=== PATIENT | female | born 1970 | race Caucasian/White ===

== ENCOUNTER 2017-01-09 22:24 | Observation (INO) | payer OTHER ==
[~2017-01-09] VITALS: Ht 160 cm; Wt 106.5 kg
--- NOTE | 2017-01-09 23:33 | DIAGNOSTIC IMAGING REPORT ---
PROCEDURE: XR CHEST 2 VIEW INDICATION: CHEST PAIN , initial encounter TECHNIQUE: PA and lateral view. COMPARISON: None. FINDINGS: Lungs are clear. Cardiovascular structures are normal. Bony thorax is unremarkable. IMPRESSION: 1. Negative chest.
--- NOTE | 2017-01-09 23:56 | ED ORDER SUMMARY ---
..... Patient: ENZO GORE OrderSheet [facility] VisitID: [id number] [address] [place] [address] 46y, F Registration Date/Time: 01/09/2017 ORDER SHEET Weight: 108.8 kg Allergies: Sulfa Antibiotics GENERAL ORDERS: Chest 2V Urgent (22:40 01/09/2017 PHutchinson DO) (Ack 22:45 Donaldo) (22:54 Meliza) [employer] Worker (Continuous) (22:40 01/09/2017 PHutchinson DO) (22:44 EBonham) (Ack 22:44 Jacna) Cardiac Panel Stat (22:41 01/09/2017 PHutchinson DO) (22:44 EBonham) (Ack 22:44 Carolinaekimana) BNP Urgent (22:41 01/09/2017 PHutchinson DO) (22:44 EBonham) (Ack 22:44 Carolinaekimana) D-Dimer Urgent (22:41 01/09/2017 PHutchinson DO) (22:44 EBonham) (Ack 22:44 Carolinaekimana) Amylase Urgent (22:41 01/09/2017 PHutchinson DO) (22:44 EBonham) (Ack 22:45 Carolinaekimana) PT with INR Urgent (22:41 01/09/2017 PHutchinson DO) (22:44 EBonham) (Ack 22:45 Carolinaekimana) UA-Culture if indicated Urgent (22:41 01/09/2017 PHutchinson DO) (Ack 22:45 Carolinaekimana) TSH Urgent (22:41 01/09/2017 PHutchinson DO) (22:44 EBonham) (Ack 22:45 Carolinaekimana) Pulse oximeter (22:41 01/09/2017 PHutchinson DO) (22:44 EBonham) EKG - ER Stat (22:41 01/09/2017 PHutchinson DO) (22:44 EBonham) (Ack 22:44 Carolinaekimana) Vitals (22:41 01/09/2017 PHutchinson DO) (22:44 [facility]) MEDICATION ORDERS: Aspirin PO 325 mg (NOW) (22:40 01/09/2017 [facility]) (Ack 22:44 [facility]) (23:13 [facility]) NitroGLYCERIN SL 0.4 mg (x3 PRN Chest Pain) (22:41 01/09/2017 [facility]) (Ack 22:44 [facility]) (23:14 [facility]) IV FLUIDS: IV NS : initial bolus 500 mL (1000 mL/hr), then 250 mL/hr for X2 (NOW) (22:40 01/09/2017 [facility]) (Ack 22:44 [facility]) (23:14 [facility]) Zofran IV 4 mg (NOW) (23:22 01/09/2017 [facility]) (Ack 23:25 HKone R.N.) (23:38 HKone R.N.) Ativan IV 1 mg (HIGH ALERT MEDICATION, NOW) (23:22 01/09/2017 [facility]) (Ack 23:25 HKone R.N.) (23:38 HKone R.N.) Dilaudid IV 0.5 mg (HIGH ALERT MEDICATION, NOW) (23:22 01/09/2017 [facility]) (Ack 23:25 HKone R.N.) (23:39 HKone R.N.) ORDER SHEET NOTES: [Electronically signed by Arun Membreno DO (01:17 01/10/2017)] [Electronically signed by Mandy Duron R.N. (:32 01/10/2017)] [Electronically locked/signed by Mandy Duron R.N. (:32 01/10/2017)]
--- NOTE | 2017-01-09 23:56 | ED ORDER SUMMARY ---
..... 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) (22:40 01/09/2017 PHutchinson DO) (22:44 EBonham) (Ack 22:44 Jacna) Cardiac Panel Stat (22:41 01/09/2017 PHutchinson DO) (22:44 EBonham) (Ack 22:44 Carolinaekimana) BNP Urgent (22:41 01/09/2017 PHutchinson DO) (22:44 EBonham) (Ack 22:44 Carolinaekimana) D-Dimer Urgent (22:41 01/09/2017 PHutchinson DO) (22:44 EBonham) (Ack 22:44 Carolinaekimana) Amylase Urgent (22:41 01/09/2017 PHutchinson DO) (22:44 EBonham) (Ack 22:45 Carolinaekimana) PT with INR Urgent (22:41 01/09/2017 PHutchinson DO) (22:44 EBonham) (Ack 22:45 Carolinaekimana) UA-Culture if indicated Urgent (22:41 01/09/2017 PHutchinson DO) (Ack 22:45 Carolinaekimana) TSH Urgent (22:41 01/09/2017 PHutchinson DO) (22:44 EBonham) (Ack 22:45 Carolinaekimana) Pulse oximeter (22:41 01/09/2017 PHutchinson DO) (22:44 EBonham) EKG - ER Stat (22:41 01/09/2017 PHutchinson DO) (22:44 EBonham) (Ack 22:44 Carolinaekimana) Vitals (22:41 01/09/2017 PHutchinson DO) (22:44 [facility]) MEDICATION ORDERS: Aspirin PO 325 mg (NOW) (22:40 01/09/2017 [facility]) (Ack 22:44 [facility]) (23:13 [facility]) NitroGLYCERIN SL 0.4 mg (x3 PRN Chest Pain) (22:41 01/09/2017 [facility]) (Ack 22:44 [facility]) (23:14 [facility]) IV FLUIDS: IV NS : initial bolus 500 mL (1000 mL/hr), then 250 mL/hr for X2 (NOW) (22:40 01/09/2017 [facility]) (Ack 22:44 [facility]) (23:14 [facility]) Zofran IV 4 mg (NOW) (23:22 01/09/2017 [facility]) (Ack 23:25 HKone R.N.) (23:38 HKone R.N.) Ativan IV 1 mg (HIGH ALERT MEDICATION, NOW) (23:22 01/09/2017 [facility]) (Ack 23:25 HKone R.N.) (23:38 HKone R.N.) Dilaudid IV 0.5 mg (HIGH ALERT MEDICATION, NOW) (23:22 01/09/2017 [facility]) (Ack 23:25 HKone R.N.) (23:39 HKone R.N.) ORDER SHEET NOTES: [Electronically signed by Arun Membreno DO (01:17 01/10/2017)] [Electronically signed by Mandy Duron R.N. (:32 01/10/2017)] [Electronically locked/signed by Mandy Duron R.N. (:32 01/10/2017)]
--- NOTE | 2017-01-09 23:56 | ED CLINICAL REPORT ---
Clinical Report - Physicians/Mid Levels [facility] [address] [place] [address] 01/09/2017 22:25 Patient: ENZO GORE Time Seen: 22:30. Arrived- By ambulance. Historian- patient and EMS personnel. HISTORY OF PRESENT ILLNESS Chief Complaint: CHEST DISCOMFORT. It is described as pressure, sharp and "pain" and it is described as located in the central chest and left chest area and in the upper back and left scapular area and radiating to the right upper back. This started today and is still present. It was gradual in onset and has been waxing/waning. Onset during light activity. At its maximum, severity described as moderate. When seen in the E.D., severity described as moderate. Modifying factors- worsened by movement. Relieved by rest. The patient has had nausea (for several days). (Pt admits to having some associated anxiety). Similar symptoms previously: None. Recent medical care: Not recently seen/assessed. REVIEW OF SYSTEMS No fever, chills, cough, pedal edema or calf pain. No fainting episodes, headache, sore throat, blurred vision or abdominal pain. No black stools, difficulty with urination, skin rash or bloody stools. The patient has had moderate, intermittent palpitations. The palpitations have lasted only seconds. The palpitations feel like skipped beats. PAST HISTORY Heart disease - states "heart damage" due to "high blood pressure when I was " and "an enlarged heart" - no known treadmill or echocardiogram per patient Anxiety and PTSD Obesity SURGERIES: Bilateral Tubal Ligation. Cholecystectomy. SOCIAL HISTORY Smoker- current status unknown. Is a local resident. ADDITIONAL NOTES The nursing notes have been reviewed. PHYSICAL EXAM Vital Signs: 01/09/2017 22:38 BP: 119/81. HR: 88. RR: 20. O2 saturation: 98%. Temp: 98.3 F. Appearance: Alert. Oriented X3. Patient in mild distress. Eyes: Eyes normal inspection. No scleral icterus or pale conjunctivae. ENT: Pharynx normal. No pharyngeal erythema or tonsillar exudate. The mucous membranes are not dry. Neck: Normal inspection. Neck supple. CVS: Normal heart rate and rhythm. Heart sounds normal. Pulses normal. Respiratory: No respiratory distress. Breath sounds normal. Abdomen: Soft and nontender. Back: Normal external inspection. Skin: Skin warm and dry. Normal skin color. No rash. Normal skin turgor. Extremities: Extremities exhibit normal ROM. No calf tenderness. No lower extremity edema. Neuro: Oriented X 3. No motor deficit. LABS, X-RAYS, AND EKG EKG: EKG time: (22:38). Normal sinus rhythm. Rate: 85. Occasional ectopic beats. Premature ventricular contractions. Normal P waves. Normal MARIA L. Q waves in lead III and aVF. Non-specific ST segment / T wave abnormalities. Non-specific T wave flattening in lead III. The study has been interpreted contemporaneously by me. The EKG appears to be a good tracing. Rhythm Strip #1: Normal sinus rhythm. Regular rhythm. Narrow QRS complexes. No ectopy. Chest X-ray: No acute disease. Normal lung markings present. Normal heart size. Mediastinum normal. Great vessels normal. Normal aortic shadow. No infiltrate. No fracture. No vascular congestion, CHF, pulmonary edema or widening of mediastinum. Views: PA and lateral. Technique: good. The X-rays were interpreted contemporaneously by me. Prior films were not available for comparison. Laboratory Tests: CBC w Diff: (XU: 01/09/2017 22:35) ( MsgRcvd 01/09/2017 23:00) Final results Test Result Flag Units (Reference) WHITE BLOOD COUNT 8.2 K/uL (4.5-11.5) RED BLOOD COUNT 5.17 M/uL (4.00-5.20) HEMOGLOBIN 14.8 gm/dL (12.0-16.0) HEMATOCRIT 44.7 % (36.0-46.0) MEAN CELL VOLUME 86 fL (80-100) MEAN CORPUSCULAR HGB 29 pg (26-34) MEAN CORPUSCULAR HGB CONC 33 g/dL (31-37) RED CELL DISTRIBUTION WIDTH 13.4 % (11.6-14.8) PLATELET COUNT 348 K/uL (150-400) LYMPH % 42.1 H % (25-40) MONO % 4.7 % (3-14) GRANULOCYTE % 53.2 (53-90) PT with INR: (XU: 01/09/2017 22:35) ( [facility] 01/09/2017 23:09) Final results Test Result Flag Units (Reference) INR 0.9 (0.8-1.2) Low Intensity Therapy: INR 1.5-2.0 PT range 18.5-23.1Mod.Intensity Therapy: INR 2.0-3.0 PT range 23.1-31.5High Intensity Therapy: INR 2.5-3.5 PT range 27.4-35.5High Intensity Therapy 2: INR 3.0-4.0 PT range 31.5-39.3 D-DIMER QUANTITATIVE < 0.27 L ug/mLFEU (0.27-0.52) The primary value of this quantitative assay relates toits negative predictive value (i.e. exclusion) of pulmonaryembolism/deep vein thrombosis/DIC.Elevated levels of d-dimer may also occur with:, age, cancer, inflammation, liver disease,post-op, infection, hematoma, coronary disease, peripheralarteriopathy, bleeding disorders and thrombolytic treatment.Results should be correlated with other clinical andradiological data.Testing Methodology: Latex Immunoassay BNP: (XU: 01/09/2017 22:41) ( [facility] 01/09/2017 23:17) Final results Test Result Flag Units (Reference) B-TYPE NATRIURETIC PEPTIDE 7.2 pg/ml (5-100) Amylase: (XU: 01/09/2017 22:35) ( [facility] [place]/09/[place] 23:22) Final results Test Result Flag Units (Reference) AMYLASE 49 U/L (25-115) THYROID STIMULATING HORMONE 2.461 uIU/mL (0.34-3.74) CHEM 13 PANEL: (XU: 01/09/2017 22:35) ( [facility] 01/09/2017 23:18) Final results Test Result Flag Units (Reference) GLUCOSE 95 mg/dL (70-110) BUN 20 H mg/dL (7-18) CREATININE 0.6 mg/dL (0.6-1.3) Estimated GFR >60 mL/min Estimated GFR- >60 mL/min Note: Persistent reduction over 3 months in eGFR<60 mL/min/1.73 m2 defines CKD. Patients with eGFR values>=60 mL/min/1.73 m2 may also have CKD if evidence ofpersistent proteinuria. Additional information may be foundat www.kidney.org. SODIUM 141 mmol/L (136-145) POTASSIUM 3.6 mmol/L (3.5-5.1) CHLORIDE 106 mmol/L (98-107) CARBON DIOXIDE 26 mmol/L (21-32) CALCIUM 8.7 mg/dL (8.5-10.1) TOTAL PROTEIN 6.8 g/dL (6.4-8.2) ALBUMIN 3.5 g/dL (3.3-5.0) BILIRUBIN, TOTAL 0.3 mg/dL (0.0-1.0) ALKALINE PHOSPHATASE 78 U/L (46-116) AST (SGOT) 11 L U/L (15-37) ALT (SGPT) 20 U/L (12-78) MAGNESIUM 1.8 mg/dL (1.8-2.4) CPK 45 U/L (24-260) TROPONIN I <0.05 L ng/mL (0.00-1.5) TROPONIN REFERENCE RANGE:<0.1 NEGATIVE0.1-1.5 INDETERMINANT>1.5 POSITIVE . Pulse Oximetry: 01/09/2017 22:38 O2 saturation: 98%. (FIO2 - room air). Interpretation: normal. PROGRESS AND PROCEDURES Course of Care: Nitroglycerin 1 inch paste given. Nitroglycerin 0.4 mg tab x2 SL given. Normal Saline 1 liter IVPB given. ASA 325 mg PO given. Ativan 1mg IVP given. Dilaudid 0.5 mg IVP given. Patient is stable. Physical exam findings are improved. Symptoms much better. 01/10/2017 00:58 BP: 103/88. HR: 76. RR: 14. O2 saturation: 97%. Pain level now: 01/01. 01/09/2017 23:45 BP: 112/50. HR: 82. RR: 18. O2 saturation: 96%. Pain level now: 01/01. Discussed case with hospitalist, (Susy call returned 00:05). Reviewed test results. Agreed upon treatment plan and decision to place in observation. Health care provider will see patient in hospital. Patient/family counseled. Transition orders written. Disposition: Observation in Acute Care. Condition: stable and improved. CLINICAL IMPRESSION Chest pain characterized as "discomfort" .12 lead EKG performed. Abnormal EKG: Q waves, nonspecific ST-T wave changes and premature ventricular contractions. Possible anxiety reaction. (Electronically signed by Arun Membreno DO 01/10/2017 1:17)
--- NOTE | 2017-01-09 23:56 | ED NURSING NOTES ---
Clinical Report - Nurses [facility] [address] [place] [address] 01/09/2017 22:25 Patient: ENZO GORE TRIAGE Triage time 2224. Acuity: LEVEL 3. Chief Complaint: CHEST PAIN and DISCOMFORT and (posterior shoulder pain nausea). Alert. No acute distress. --22:42 Ginny Williamson 22:38 01/09/17. BP: 119/81. HR: 88. RR: 20. O2 saturation: 98%. Temp: 98.3 F. Pain level now 6/10. --22:42 Ginny Williamson. Weight: 108.8 kg. Height/Length: 63 inches. BMI: 42.5. --22:38 Ginny Williamson. Medications ClonazePAM Oral. --22:39 Ginny Williamson. Allergies Sulfa Antibiotics. --22:39 Ginny Williamson. History Arrived by EMS. Historian: patient. This started today. 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 PAST MEDICAL HX: Immunizations: up-to-date. SOCIAL HX: Heavy tobacco smoker (cigarette)- less than 1 pack per day. --22:42 Ginny Williamson. PROBLEMS: Anxiety Reaction [RuleOut]. --01:16 Arun Membreno DO The following entry was modified by Arun Membreno DO, 01:16 <<STRICKEN ENTRY-- Anxiety Reaction. --22:40 Ginny Williamson --END STRIKE>>. ADDITIONAL SURGERIES: Bilateral Tubal Ligation. Cholecystectomy. --22:40 Ginny Williamson. Interventions ID band on patient. To treatment room. --22:42 Ginny Williamson. PHYSICAL ASSESSMENT To room via stretcher. Patient gowned. GENERAL / NEURO / PSYCH: Alert. Oriented X 4. Appears anxious. HEENT: Mucous membranes are pink. RESPIRATORY: Respirations not labored. Chest pain reproducible. Chest wall tenderness. Breath sounds within normal limits. CVS: Normal sinus rhythm noted. Heart sounds within normal limits. Pulses within normal limits. Capillary refill less than 2 seconds. GI / : Abdomen soft and nontender. EXTREMITIES: No lower extremity edema. SKIN: Skin is warm and dry. Normal skin turgor. Skin is non-tender. --22:42 Ginny Williamson. NURSING PROGRESS NOTES 22:43 01/09/2017 Site #1 started via IV in the left antecubital space with an 22g angiocath, with aseptic technique and good blood return; one attempt. Blood drawn: rainbow set. Labeled in the presence of the patient and sent to the lab. Saline lock flushed with 10 mL saline. --22:43 Ginny Williamson The plan of care for this patient has been created. Monitoring of patient in place. Patient gowned. Reassurance given. Call light placed in reach. Side rails up x 2. Bed placed in lowest position. Brakes of bed on. Patient ready for evaluation- chart flagged. --22:43 Ginny Williamson 23:00 01/09/2017 Aspirin PO 325 mg given. Allergies verified and confirmed 5 rights. --23:13 Ginny Williamson 23:00 01/09/2017 Nitroglycerin SL 0.4 mg given. Allergies verified and confirmed 5 rights. --23:14 Ginny Williamson 23:05 01/09/2017 Nitroglycerin SL 0.4 mg given. Allergies verified and confirmed 5 rights. --23:14 Ginny Williamson 23:14 01/09/2017 Started bag #1 1000 mL IV Fluids IV NS (Saline); bolus of 500 mL over 1 hour(s) via site #1 via IV pump. Allergies verified and confirmed 5 rights. IV patency established. IV site checked: no pain, redness, or swelling. IV flushed thoroughly pre- and post-medication administration. --23:14 Ginny Williamson ( Post Ntg #1- pain worse, 07/01, 126/80, 88 Post Ntg #2- pain worse feeling sob, 08/01, 119/68, 78 Nitro trial completed due to hypotension risk and pt feels it is making her heart pain worse). --23:17 Ginny Williamson Care transferred and report received (from CONNOR Gross). --23:21 Mandy Duron R.N. EKG time: (2237). EKG was ordered, performed by a tech and shown to the ED physician. --23:24 Wiliam Vann, MAR[employer] 23:38 01/09/2017 Zofran (Ondansetron HCl) IVP 4 mg given over 1 minute(s) via site #1. Allergies verified and confirmed 5 rights. IV patency established. IV site checked: no pain, redness, or swelling. IV flushed thoroughly pre- and post-medication administration. IVP given by RN. --23:38 Mandy Duron R.N. 23:38 01/09/2017 Ativan (LORazepam) IVP 1 mg given over 1 minute(s) via site #1. Allergies verified, confirmed 5 rights and sedative warning given to the patient. IV patency established. IV site checked: no pain, redness, or swelling. IV flushed thoroughly pre- and post-medication administration. IVP given by RN. --23:38 Mandy Duron R.N. 23:39 01/09/2017 Dilaudid (HYDROmorphone HCl PF) IVP 0.5 mg given over 1 minute(s) via site #1. Allergies verified, confirmed 5 rights and sedative warning given to the patient. IV patency established. IV site checked: no pain, redness, or swelling. IV flushed thoroughly pre- and post-medication administration. IVP given by RN. --23:39 Mandy Duron R.N. 23:45 01/09/17. BP: 112/50. HR: 82. RR: 18 (unlabored). O2 saturation: 96% on room air. Pain level now: 01/01. --00:00 Mandy Duron R.N. pt states she's feeling much better after medication given. pain down from an 8 to 2. MD in to check on pt. --00:01 Mandy Duron R.N. 00:30 01/10/2017 IV Fluids IV NS via IV site #1 Rate Changed: bag #1 decreased to 250 mL/hr via IV pump. IV patency established. IV site checked: no pain, redness, or swelling. IV flushed thoroughly. --00:30 Con Zamora R.N. 01:10 01/10/2017 IV Fluids IV NS Continued: upon admission at the rate of 250 mL/hr. 300 ml mL remaining bag #1. IV patency established. IV site checked: no pain, redness, or swelling. IV flushed thoroughly. --01:30 Mandy Duron R.N. 01:10 pt unable to give urine specimen before being admitted to floor. --01:32 Mandy Duron R.N. DISPOSITION / DISCHARGE Cardiac rhythm: normal sinus rhythm. Departure time: 1258. Condition at departure: stable. Admitted to Acute Care (302). Transported via stretcher by nurse with monitor. Report was given to a nurse via a phone call. Report included patient's care, treatment, medications, reviewed medication reconcilliation, and condition (including any recent changes or anticipated changes). All questions were answered. Report was acknowledged and care was transferred. (CONNOR Vigil). Medication list reviewed and validated with the patient. --00:59 Mandy Duron R.N. 00:58 01/10/17. BP: 103/88. HR: 76. RR: 14 (unlabored). O2 saturation: 97% on room air. Temp: deferred. Pain level now: 01/01. --00:59 Mandy Duron R.N. Locked/Released at 01/10/2017 1:32 by Mandy Duron R.N.
[2017-01-10] MEDS ORDERED: VITAMIN C500 M1 PO (00:45)
[2017-01-10] MEDS ORDERED: VITAMIN D-11000 UNIT PO (00:46)
[2017-01-10] MEDS ORDERED: ZINC SULFATE220 MG PO (00:47)
[2017-01-10] MEDS ORDERED: CLONAZEPAM1 MG PO (00:48)
[2017-01-10 01:28] VITALS: BP 130/80
--- NOTE | 2017-01-10 01:33 | ED DISCHARGE INSTRUCTIONS ---
Patient: ENZO GORE General Instructions [facility] VisitID: [id number] [address] [place] [address] 46y, F Registration Date/Time: 01/09/2017 Chest pain characterized as "discomfort" .12 lead EKG performed. Abnormal EKG: Q waves, nonspecific ST-T wave changes and premature ventricular contractions. (Electronically signed by Arun Membreno DO 01/10/2017 1:17)
--- NOTE | 2017-01-10 01:33 | ED DISCHARGE INSTRUCTIONS ---
Patient: ENZO GORE General Instructions [facility] VisitID: [id number] [address] [place] [address] 46y, F Registration Date/Time: 01/09/2017 Chest pain characterized as "discomfort" .12 lead EKG performed. Abnormal EKG: Q waves, nonspecific ST-T wave changes and premature ventricular contractions. (Electronically signed by Arun Membreno DO 01/10/2017 1:17)
--- NOTE | 2017-01-10 01:33 | ED MAR SUMMARY ---
..... Medication Administration Record [facility] [address] [place] [address] Patient: ENZO GORE Visit ID: [id number] 46y, F Weight: 108.8 kg Height/Length: 63 in BMI: 42.5 ALLERGIES: Sulfa Antibiotics Given 23:00 01/09/2017 Ginny Williamson, Medication Administered: NITROGLYCERIN [SL], Dose: 0.4 mg SL. Medication Ordered: NitroGLYCERIN SL 0.4 mg (x3 PRN Chest Pain). Given 23:00 01/09/2017 Ginny Williamson, Medication Administered: ASPIRIN [PO], Dose: 325 mg PO. Medication Ordered: Aspirin PO 325 mg (NOW). Given 23:05 01/09/2017 Ginny Williamson, Medication Administered: NITROGLYCERIN [SL], Dose: 0.4 mg SL. Medication Ordered: NitroGLYCERIN SL 0.4 mg (x3 PRN Chest Pain). Start 23:14 01/09/2017 Ginny Williamson,, Continued Upon Admission 01:10 01/10/2017 Mandy Duron RLoretaNLoreta Medication Administered: IV NS (SALINE), Dose: IV Fluids, Bolus: 500 mL over 1 hour(s), Dispensed: 1000 mL bag, Site: #1 left AC. Medication Ordered: IV NS : initial bolus 500 mL (1000 mL/hr), then 250 mL/hr for X2 (NOW). Given 23:38 01/09/2017 Mandy Duron RCari Medication Administered: ZOFRAN [IVP] (ONDANSETRON HCL), Dose: 4 mg IVP over 1 minute(s), Site: #1 left AC. Medication Ordered: Zofran IV 4 mg (NOW). Given 23:38 01/09/2017 Mandy Duron R.N. Medication Administered: ATIVAN [IVP] (LORAZEPAM), Dose: 1 mg IVP over 1 minute(s), Site: #1 left AC. Medication Ordered: Ativan IV 1 mg (HIGH ALERT MEDICATION, NOW). Given 23:39 01/09/2017 Mandy Duron R.NLoreta Medication Administered: DILAUDID [IVP] (HYDROMORPHONE HCL PF), Dose: 0.5 mg IVP over 1 minute(s), Site: #1 left AC. Medication Ordered: Dilaudid IV 0.5 mg (HIGH ALERT MEDICATION, NOW).
--- NOTE | 2017-01-10 01:33 | ED MED RECONCILIATION SUMMARY ---
Patient: ENZO GORE Medication Reconciliation Report [facility] VisitID: [id number] [address] [place] [address] 46y, F Registration Date/Time: 01/09/2017 Weight: 108.8 kg Height/Length: 63 in. BMI: 42.5 ALLERGIES: Sulfa Antibiotics The patient's Home Medications are listed below: THE FOLLOWING MEDICATIONS NEED TO BE RECONCILED: ClonazePAM Oral The source(s) of the original Home Medication information: Not obtained. The following Medications were given to the patient in the Emergency Department: Aspirin [PO] PO 325 mg, administered: 01/09/2017 11:00:00 PM IV NS IV Fluids bolus 500 mL over 1 hour(s), administered: 01/09/2017 11:14:00 PM Nitroglycerin [SL] SL 0.4 mg, administered: 01/09/2017 11:00:00 PM Nitroglycerin [SL] SL 0.4 mg, administered: 01/09/2017 11:05:00 PM Zofran [IVP] IVP 4 mg, administered: 01/09/2017 11:38:00 PM Ativan [IVP] IVP 1 mg, administered: 01/09/2017 11:38:00 PM Dilaudid [IVP] IVP 0.5 mg, administered: 01/09/2017 11:39:00 PM The following Medications were prescribed to the patient: None.
--- NOTE | 2017-01-10 01:33 | ED MAR SUMMARY ---
..... Medication Administration Record [facility] [address] [place] [address] Patient: ENZO GORE Visit ID: [id number] 46y, F Weight: 108.8 kg Height/Length: 63 in BMI: 42.5 ALLERGIES: Sulfa Antibiotics Given 23:00 01/09/2017 Ginny Williamson, Medication Administered: NITROGLYCERIN [SL], Dose: 0.4 mg SL. Medication Ordered: NitroGLYCERIN SL 0.4 mg (x3 PRN Chest Pain). Given 23:00 01/09/2017 Ginny Williamson, Medication Administered: ASPIRIN [PO], Dose: 325 mg PO. Medication Ordered: Aspirin PO 325 mg (NOW). Given 23:05 01/09/2017 Ginny Williamson, Medication Administered: NITROGLYCERIN [SL], Dose: 0.4 mg SL. Medication Ordered: NitroGLYCERIN SL 0.4 mg (x3 PRN Chest Pain). Start 23:14 01/09/2017 Ginny Williamson,, Continued Upon Admission 01:10 01/10/2017 Mandy Duron RLoretaNLoreta Medication Administered: IV NS (SALINE), Dose: IV Fluids, Bolus: 500 mL over 1 hour(s), Dispensed: 1000 mL bag, Site: #1 left AC. Medication Ordered: IV NS : initial bolus 500 mL (1000 mL/hr), then 250 mL/hr for X2 (NOW). Given 23:38 01/09/2017 Mandy Duron RCari Medication Administered: ZOFRAN [IVP] (ONDANSETRON HCL), Dose: 4 mg IVP over 1 minute(s), Site: #1 left AC. Medication Ordered: Zofran IV 4 mg (NOW). Given 23:38 01/09/2017 Mandy Duron R.N. Medication Administered: ATIVAN [IVP] (LORAZEPAM), Dose: 1 mg IVP over 1 minute(s), Site: #1 left AC. Medication Ordered: Ativan IV 1 mg (HIGH ALERT MEDICATION, NOW). Given 23:39 01/09/2017 Mandy Duron R.NLoreta Medication Administered: DILAUDID [IVP] (HYDROMORPHONE HCL PF), Dose: 0.5 mg IVP over 1 minute(s), Site: #1 left AC. Medication Ordered: Dilaudid IV 0.5 mg (HIGH ALERT MEDICATION, NOW).
--- NOTE | 2017-01-10 01:33 | ED MED RECONCILIATION SUMMARY ---
Patient: ENZO GORE Medication Reconciliation Report [facility] VisitID: [id number] [address] [place] [address] 46y, F Registration Date/Time: 01/09/2017 Weight: 108.8 kg Height/Length: 63 in. BMI: 42.5 ALLERGIES: Sulfa Antibiotics The patient's Home Medications are listed below: THE FOLLOWING MEDICATIONS NEED TO BE RECONCILED: ClonazePAM Oral The source(s) of the original Home Medication information: Not obtained. The following Medications were given to the patient in the Emergency Department: Aspirin [PO] PO 325 mg, administered: 01/09/2017 11:00:00 PM IV NS IV Fluids bolus 500 mL over 1 hour(s), administered: 01/09/2017 11:14:00 PM Nitroglycerin [SL] SL 0.4 mg, administered: 01/09/2017 11:00:00 PM Nitroglycerin [SL] SL 0.4 mg, administered: 01/09/2017 11:05:00 PM Zofran [IVP] IVP 4 mg, administered: 01/09/2017 11:38:00 PM Ativan [IVP] IVP 1 mg, administered: 01/09/2017 11:38:00 PM Dilaudid [IVP] IVP 0.5 mg, administered: 01/09/2017 11:39:00 PM The following Medications were prescribed to the patient: None.
--- NOTE | 2017-01-10 02:48 | HISTORY AND PHYSICAL ---
ADMITTED: 01/10/2017 CHIEF COMPLAINT: 1. Chest pain HISTORY OF PRESENT ILLNESS: This is a 46-year-old female with a history of anxiety, presenting to the emergency department with complaints of chest pain. She states that at approximately 10 a.m. this morning she started having chest pain that radiated to her back. She describes the chest pain as a pressure, but the back pain is a sharp discomfort. She states that the pain causes shortness of breath, but there is no associated diaphoresis. She also complains of palpitations. The patient does have a history of smoking. MEDICAL/SURGICAL HISTORY: Past medical history: The patient has a history of cholecystectomy. MEDICATIONS: 1. Multivitamin. ALLERGIES: 1. SULFA. . SOCIAL HISTORY: The patient lives alone. She smokes about a half a pack a day and has for over 25 years. She denies any drug use. She drinks alcohol maybe 2 times a year at most. FAMILY HISTORY: Mother with gastrointestinal ulcer, alcohol abuse, hypertension. Paternal grandparents have type 2 diabetes. Father with type 2 diabetes. REVIEW OF SYSTEMS: A full 12-point review of systems was done and was negative except as per HPI and the fact that the patient has been having some nausea throughout the week. PHYSICAL EXAMINATION: VITAL SIGNS: Blood pressure is 130/80, pulse 73, respiratory rate 18, O2 saturation 97% on room air, T-max is 36.4 degrees Celsius. GENERAL: This is a well-appearing white female lying in bed in no apparent distress. HEENT: Head is atraumatic, normocephalic. Pupils are equal, round, and reactive to light with accommodation bilaterally. Extraocular muscles are intact bilaterally. Oropharynx is nonerythematous without exudates. NECK: Trachea is midline. There is no JVD. HEART: S1, S2, regular rate and rhythm. No S3, S4, murmurs, gallops, or rubs. LUNGS: Clear to auscultation bilaterally. ABDOMEN: Soft, nontender, nondistended without hepatosplenomegaly or masses. Bowel sounds are active. EXTREMITIES: There is no peripheral edema. LAB/IMAGING: Sodium is 141, potassium 3.6, chloride 106, bicarbonate 26, BUN of 20, creatinine 0.6, glucose of 95. White blood count of 8.2, hemoglobin 14.8, hematocrit 44.7, platelets 348, alkaline phosphatase of 78, AST of 11, ALT of 20, amylase 49. CK is 45. Troponin is less than 0.05. TSH 2.461. BNP is 7.2. INR 0.9. D-dimer is less than 0.27. Magnesium 1.8, calcium 8.7, total protein of 6.8, albumin 3.5, and total bilirubin is 0.3. Other studies: EKG shows a sinus rhythm at 87 beats per minute with a QTc of 457 and flipped T-waves in the anterior leads, questionable Q-waves in the inferior leads. Chest x-ray is negative. IMPRESSION: 1. This is a 46-year-old female who has been having intermittent chest pain today that is ongoing despite nitroglycerin; however, much improved, presented to the emergency department and being admitted for rule out acute coronary syndrome. I think this chest pain is most likely gastroesophageal reflux disease and/or anxiety. PLAN: 1. Cardiac: The patient will have serial troponins and we will discuss doing a stress test in the morning. 2. Gastrointestinal: The patient is likely having gastroesophageal reflux disease and I will start pantoprazole and do a GI cocktail at this time as her pain is slightly worsened currently. 3. Prophylaxis. The patient will be eating and will do sequential compression devices. If patient stays in the hospital for longer than 24 hours, one should consider chemical deep venous thrombosis prophylaxis. 4. CODE STATUS: FULL CODE.
[2017-01-10 07:46] VITALS: BP 116/71
--- NOTE | 2017-01-10 08:39 | Progress Note ---
Medications and Allergies Allergies Coded Allergies: Sulfa Antibiotics (Mild, unkown 01/10/17) Allergies Sulfa Antibiotics. --22:39 Ginny Williamson. Brief History: [ ] Subjective: The patient [subjective] Patient requests: [patient requests] Medications and Allergies Medications Current Medications Sig/Donnell Start time Last Medication Dose Route Stop Time Status Admin Nicotine 21 MG QAM 01/10 0900 CAN TOP Nicotine 14 MG QAM 01/10 0800 AC TOP Pantoprazole Sodium 40 MG PPIBID 01/10 0300 AC 01/10 Sesquihydrate PO 0218 Hydroxyzine Pamoate 25 MG Q6H PRN 01/10 0215 AC 01/10 PO 0752 Lidocaine 15 ML Q6H PRN 01/10 0200 AC Al Hydrox/Mg Hydrox/ 15 ML PO Simethicone Allergies Coded Allergies: Sulfa Antibiotics (Mild, unkown 01/10/17) Allergies Sulfa Antibiotics. --22:39 Gniny Williamson. Physical Exam Vital Signs / I&Os Vital Signs Date Time Temp Pulse Resp B/P Pulse O2 O2 Flow FiO2 Ox Delivery Rate 01/10 0746 97.9 78 21 116/71 98 Room Air 01/10 0128 97.5 73 18 130/80 97 Room Air LAB Results Laboratory Tests 01/10 01/10 01/10 01/09 01/09 0825 0750 0230 2241 2235 Chemistry Troponin (0.00 - 1.5 ng/mL) Pending <0.05 B-Natriuretic Peptide (5 - 100 pg/ml) 7.2 Amylase (25 - 115 U/L) 49 TSH 3rd Generation (0.34 - 3.74 uIU/mL) 2.461 Urines Urine Color Pending Urine Appearance Pending Urine pH Pending Ur Specific [place] Pending Urine Protein Pending Urine Ketones Pending Urine Blood Pending Urine Nitrite Pending Urine Bilirubin Pending Urine Urobilinogen Pending Ur Leukocyte Esterase Pending Urine RBC Pending Urine WBC Pending Ur Epithelial Cells Pending Urine Bacteria Pending Urine Glucose Pending 01/09 2235 Chemistry Plasma Sodium (136 - 145 mmol/L) 141 Plasma Potassium (3.5 - 5.1 mmol/L) 3.6 Plasma Chloride (98 - 107 mmol/L) 106 CO2 (Enzymatic) (21 - 32 mmol/L) 26 BUN (7 - 18 mg/dL) 20 Creatinine (0.6 - 1.3 mg/dL) 0.6 Est GFR ( Amer) (mL/min) >60 Est GFR (Non-Af Amer) (mL/min) >60 Glucose (70 - 110 mg/dL) 95 Plasma Calcium (8.5 - 10.1 mg/dL) 8.7 Plasma Magnesium (1.8 - 2.4 mg/dL) 1.8 Total Bilirubin (0.0 - 1.0 mg/dL) 0.3 AST (15 - 37 U/L) 11 ALT (12 - 78 U/L) 20 Alkaline Phosphatase (46 - 116 U/L) 78 Creatine Kinase (24 - 260 U/L) 45 Troponin (0.00 - 1.5 ng/mL) <0.05 Total Protein (6.4 - 8.2 g/dL) 6.8 Albumin (3.3 - 5.0 g/dL) 3.5 Coagulation INR (0.8 - 1.2) 0.9 D-Dimer, Quantitative (0.27 - 0.52 ug/mLFEU) < 0.27 Hematology WBC (4.5 - 11.5 K/uL) 8.2 RBC (4.00 - 5.20 M/uL) 5.17 Hgb (12.0 - 16.0 gm/dL) 14.8 Hct (36.0 - 46.0 %) 44.7 MCV (80 - 100 fL) 86 MCH (26 - 34 pg) 29 RDW (11.6 - 14.8 %) 13.4 Gran % (53 - 90) 53.2 Lymph % (Auto) (25 - 40 %) 42.1 [place] % (Auto) (3 - 14 %) 4.7 Plt Count, EDTA (150 - 400 K/uL) 348 PUBS MCHC (31 - 37 g/dL) 33 Microbiology Date/Time Procedure - Status Source Growth 01/10 0115 MRSA Screen - RECD NASAL Assessment and Plan Problem List 1. Chest pain Plan Current status: [current status] Anticipated discharge date: [discharge date] Anticipated discharge placement: [Home] Patient care time: Time spent in chart review, patient interview, physical exam, CPOE, and care documentation: [ ] minutes Visit to patient today: [ ] Complexity of care: [ ] For other recommendations regarding discharge diet, activity, followup, and discharge medications please see the patient's discharge instructions. Greater than 30 min. was spent in the patient's discharge preparation including discharge interview and physical examination, progress note, discharge instructions, and discharge summary E&M Codes Discharge: Observation - All/[id number]
[2017-01-10 10:48] VITALS: BP 123/79
[2017-01-10 14:20] VITALS: BP 118/70
[2017-01-10] MEDS ORDERED: NICOTINE T14 MG/24 H TOP (15:23)
[2017-01-10] MEDS ORDERED: CLONAZEPAM0.5 MG PO (15:23)
[2017-01-10] MEDS ORDERED: CELEXA20 MG PO (15:23)
--- NOTE | 2017-01-10 15:25 | Provider's Discharge Care Plan ---
Problem, Goal, Plan Problem List 1. Chest pain Goals: Improve disease control, Prevent disease progress Instructions: Follow up as directed, Take meds as directed, Tylenol 650 mg orally every 4 hours as needed for pain. 2. Nicotine dependence Goals: Improve disease control, Prevent disease progress Instructions: Follow up as directed, Take meds as directed, Stop smoking 3. Panic disorder Goals: Improve disease control, Improve function, Improved health/wellness, Prevent disease progress Instructions: Follow up as directed, Take meds as directed
--- NOTE | 2017-01-10 16:21 | Discharge Summary ---
Discharge Summary Report Admit Date 01/10/17 Discharge Date 01/10/17 Admission Diagnosis 1. Chest pain rule out ACS 2. Nicotine dependence-smoking 3. Generalized anxiety disorder/panic disorder Discharge Diagnosis 1. Chest pain rule out ACS 2. Nicotine dependence-smoking 3. Generalized anxiety disorder/panic disorder Brief History See admission history and physical and ER visit note. Hospital Course The following problems and their management were noted during the patient's hospitalization: 1. Chest pain rule out ACS The patient presented with history of chest pain. This was clearly noted to be chest wall pain following admission. She was treated with nonsteroidals/Tylenol with improved status. Cardiac enzymes/EKG was inconsistent with myocardial ischemia/infarction. It was felt that her symptoms were related to chest wall pain exacerbated with her degree of anxiety. Symptoms are much improved with treatment of pain and anxiety at the time of discharge. She will follow-up with her PCP this week for reevaluation. 2. Nicotine dependence-smoking The patient has a history of nicotine dependence-smoking. She underwent smoking cessation education. NicoDerm patch when necessary post discharge. She was encouraged to follow a smoking abstinence program post discharge 3. Generalized anxiety disorder/panic disorder The patient has a history of generalized anxiety disorder/panic disorder. She was treated with Ativan/clonazepam/citalopram during her hospital stay. Her symptoms were adequately controlled. She was discharged on Klonopin 0.5 mg by mouth 3 times a day and citalopram 10 mg by mouth daily. She will follow-up with her PCP this week for reevaluation. The patient should have her citalopram increased to therapeutic dosage over the next 2-6 weeks. Hopefully wean off benzodiazepines with therapeutic response to citalopram. Recommended CBT. General Appearance Alert, Oriented X3, Cooperative, No acute distress Lungs Clear to auscultation Cardiovascular Regular Rate, Normal S1, Normal S2 Abdomen Normal bowel sounds, Soft, No tenderness Neurological Grossly normal. Psych/Mental Status Mental status NL, Mood NL, anxious Lab/Imaging Laboratory Tests 01/10 01/10 01/10 01/09 0825 0750 0230 2241 Chemistry Troponin (0.00 - 1.5 ng/mL) <0.05 <0.05 B-Natriuretic Peptide (5 - 100 pg/ml) 7.2 Urines Urine Color YELLOW Urine Appearance CLEAR Urine pH (5.0 - 8.0) 5.5 Ur Specific [place] (1.010 - 1.030) 1.020 Urine Protein (NEGATIVE) NEGATIVE Urine Ketones (NEGATIVE) NEGATIVE Urine Blood (NEGATIVE) NEGATIVE Urine Nitrite (NEGATIVE) NEGATIVE Urine Bilirubin (NEGATIVE) NEGATIVE Urine Urobilinogen (0.2 - 1.0 EU/dL) 0.2 Ur Leukocyte Esterase (NEGATIVE) NEGATIVE Urine RBC (0 - 1 rbc/hpf) NONE SEEN Urine WBC (0 - 1 wbc/hpf) NONE SEEN Ur Epithelial Cells (0 - 5 EPI/hpf) RARE Urine Bacteria (NONE SEEN) TRACE (<1+) Urine Glucose (NEGATIVE) NEGATIVE Urine Comment CULT NOT INDICATED 01/09 01/09 2235 2235 Chemistry Plasma Sodium (136 - 145 mmol/L) 141 Plasma Potassium (3.5 - 5.1 mmol/L) 3.6 Plasma Chloride (98 - 107 mmol/L) 106 CO2 (Enzymatic) (21 - 32 mmol/L) 26 BUN (7 - 18 mg/dL) 20 Creatinine (0.6 - 1.3 mg/dL) 0.6 Est GFR ( Amer) (mL/min) >60 Est GFR (Non-Af Amer) (mL/min) >60 Glucose (70 - 110 mg/dL) 95 Plasma Calcium (8.5 - 10.1 mg/dL) 8.7 Plasma Magnesium (1.8 - 2.4 mg/dL) 1.8 Total Bilirubin (0.0 - 1.0 mg/dL) 0.3 AST (15 - 37 U/L) 11 ALT (12 - 78 U/L) 20 Alkaline Phosphatase (46 - 116 U/L) 78 Creatine Kinase (24 - 260 U/L) 45 Troponin (0.00 - 1.5 ng/mL) <0.05 Total Protein (6.4 - 8.2 g/dL) 6.8 Albumin (3.3 - 5.0 g/dL) 3.5 Amylase (25 - 115 U/L) 49 TSH 3rd Generation (0.34 - 3.74 uIU/mL) 2.461 Coagulation INR (0.8 - 1.2) 0.9 D-Dimer, Quantitative (0.27 - 0.52 ug/mLFEU) < 0.27 Hematology WBC (4.5 - 11.5 K/uL) 8.2 RBC (4.00 - 5.20 M/uL) 5.17 Hgb (12.0 - 16.0 gm/dL) 14.8 Hct (36.0 - 46.0 %) 44.7 MCV (80 - 100 fL) 86 MCH (26 - 34 pg) 29 RDW (11.6 - 14.8 %) 13.4 Gran % (53 - 90) 53.2 Lymph % (Auto) (25 - 40 %) 42.1 [place] % (Auto) (3 - 14 %) 4.7 Plt Count, EDTA (150 - 400 K/uL) 348 PUBS MCHC (31 - 37 g/dL) 33 Microbiology Date/Time Procedure - Status Source Growth 01/10 0115 MRSA Screen - RECD NASAL Discharge Instructions/Meds For other recommendations regarding discharge diet, activity, followup, and discharge medications please see the patient's discharge instructions. Discharge condition: Fair, improved Greater than 30 min. was spent in the patient's discharge preparation including discharge interview and physical examination, progress note, discharge instructions, and discharge summary The patient was interviewed and examined on the day of discharge. E&M Codes Discharge: Observation - All/[id number]
== END 2017-01-10 17:15 | disposition home or self-care (01) ==
LOC: ED SRH 22:24 → TRANS SRH 01-10 00:35 → CC SRH 01-10 01:40 → ACUTE2 SRH 01-10 10:37
PROVIDERS: ADMIT Family Medicine
DX: R07.9 Chest pain, unspecified (principal); R94.31 Abnormal electrocardiogram [ECG] [EKG]; F41.1 Generalized anxiety disorder; F41.0 Panic disorder [episodic paroxysmal anxiety]; F17.200 Nicotine dependence, unspecified, uncomplicated
CPT/HCPCS: 29230; 29247; 29263; 90004; 90074; 90100; 90616; 91320; 91556; 92132; 92530; 92610; 92720; 93140; 94060; 95059